=== PATIENT | male | born 1995 | race Asian ===

== ENCOUNTER 2017-12-02 11:58 | Emergency (ER) | payer OTHER ==
[~2017-12-02] VITALS: Ht 167.6 cm; Wt 61.2 kg
[2017-12-02 12:19] VITALS: BP 155/80; TEMP 99
== END 2017-12-02 15:35 | disposition home or self-care (01) ==
LOC: ED 11:58
DX: R53.1 Weakness (principal); K92.0 Hematemesis
CPT/HCPCS: 99281

== ENCOUNTER 2020-05-28 18:32 | Emergency (ER) | payer OTHER ==
[~2020-05-28] VITALS: Ht 167.6 cm; Wt 56.7 kg
[2020-05-28 19:10] VITALS: TEMP 98.2
[2020-05-28 21:11] VITALS: BP 126/78
== END 2020-05-28 21:12 | disposition home or self-care (01) ==
LOC: ED 18:32
DX: J20.9 Acute bronchitis, unspecified (principal); Z03.818 Encounter for observation for suspected exposure to other biological agents ruled out; F17.210 Nicotine dependence, cigarettes, uncomplicated
CPT/HCPCS: 87635; 99283; U0003

== ENCOUNTER 2021-03-27 10:13 | Emergency (ER) | payer OTHER ==
[~2021-03-27] VITALS: Ht 167.6 cm; Wt 56.7 kg
[2021-03-27 10:15] VITALS: TEMP 98.3
[2021-03-27 11:40] VITALS: BP 118/62
== END 2021-03-27 11:40 | disposition home or self-care (01) ==
LOC: ED 10:13
DX: J20.9 Acute bronchitis, unspecified (principal); F17.210 Nicotine dependence, cigarettes, uncomplicated
CPT/HCPCS: 99281

== ENCOUNTER 2021-04-04 07:00 | Emergency (ER) | payer OTHER ==
[~2021-04-04] VITALS: Ht 167.6 cm; Wt 59.0 kg
[2021-04-04 07:08] VITALS: BP 132/66; TEMP 99.3
== END 2021-04-04 07:35 | disposition home or self-care (01) ==
LOC: ED 07:00
DX: K62.0 Anal polyp (principal)
CPT/HCPCS: 99281

== ENCOUNTER 2021-04-09 06:18 | Emergency (ER) | payer OTHER ==
[~2021-04-09] VITALS: Ht 167.6 cm; Wt 54.0 kg
[2021-04-09 06:28] VITALS: TEMP 98.1
[2021-04-09 08:15] VITALS: BP 118/76
== END 2021-04-09 08:15 | disposition home or self-care (01) ==
LOC: ED 06:18
DX: J40 Bronchitis, not specified as acute or chronic (principal); F17.210 Nicotine dependence, cigarettes, uncomplicated; Z20.822 Contact with and (suspected) exposure to COVID-19
CPT/HCPCS: 87635; 99282; U0003

== ENCOUNTER 2021-07-28 06:24 | Emergency (ER) | payer OTHER ==
[~2021-07-28] VITALS: Ht 167.6 cm; Wt 59.0 kg
[2021-07-28 06:30] VITALS: BP 133/66; TEMP 99
== END 2021-07-28 07:39 | disposition home or self-care (01) ==
LOC: ED 06:24
DX: J06.9 Acute upper respiratory infection, unspecified (principal); Z20.822 Contact with and (suspected) exposure to COVID-19; F17.290 Nicotine dependence, other tobacco product, uncomplicated
CPT/HCPCS: 87635; 87651; 99283; U0003

== ENCOUNTER 2021-11-10 19:06 | Emergency (ER) | payer OTHER ==
[~2021-11-10] VITALS: Ht 167.6 cm; Wt 55.3 kg
[2021-11-10 20:05] VITALS: BP 122/74; TEMP 98.7
== END 2021-11-10 20:05 | disposition home or self-care (01) ==
LOC: ED 19:06
DX: J20.9 Acute bronchitis, unspecified (principal); F17.210 Nicotine dependence, cigarettes, uncomplicated
CPT/HCPCS: 96372; 99283; J0696; J1100

== ENCOUNTER 2021-11-16 21:36 | Emergency (ER) | payer OTHER ==
[~2021-11-16] VITALS: Ht 167.6 cm; Wt 55.3 kg
[2021-11-16 23:45] VITALS: BP 118/58; TEMP 98.2
== END 2021-11-16 23:45 | disposition home or self-care (01) ==
LOC: ED 21:36
DX: M54.59 Other low back pain (principal); G89.29 Other chronic pain; V89.2XXA Person injured in unspecified motor-vehicle accident, traffic, initial encounter; Y92.89 Other specified places as the place of occurrence of the external cause
CPT/HCPCS: 81000; 99283

== ENCOUNTER 2021-12-15 07:17 | Emergency (ER) | payer OTHER ==
[~2021-12-15] VITALS: Ht 167.6 cm; Wt 55.3 kg
[2021-12-15 07:26] VITALS: BP 132/70; TEMP 97.9
== END 2021-12-15 08:09 | disposition home or self-care (01) ==
LOC: ED 07:17
DX: K02.9 Dental caries, unspecified (principal)
CPT/HCPCS: 96372; 99283; J1885

== ENCOUNTER 2022-02-25 05:43 | Emergency (ER) | payer OTHER ==
[~2022-02-25] VITALS: Ht 167.6 cm; Wt 51.3 kg
[2022-02-25 06:44] VITALS: BP 124/70; TEMP 98.4
== END 2022-02-25 06:44 | disposition home or self-care (01) ==
LOC: ED 05:43
DX: B34.9 Viral infection, unspecified (principal); J06.9 Acute upper respiratory infection, unspecified; H61.23 Impacted cerumen, bilateral; F17.210 Nicotine dependence, cigarettes, uncomplicated
CPT/HCPCS: 96372; 99283; J0696; J1100

== ENCOUNTER 2022-07-11 21:53 | Emergency (ER) | payer OTHER ==
[~2022-07-11] VITALS: Ht 167.6 cm; Wt 57.2 kg
[2022-07-11 22:00] VITALS: BP 147/92; TEMP 98.1
== END 2022-07-11 23:15 | disposition home or self-care (01) ==
LOC: ED 21:53
DX: K04.7 Periapical abscess without sinus (principal); K02.9 Dental caries, unspecified; S02.5XXA Fracture of tooth (traumatic), initial encounter for closed fracture; X58.XXXA Exposure to other specified factors, initial encounter; Y92.89 Other specified places as the place of occurrence of the external cause
CPT/HCPCS: 96372; 99283; J0696; J1885; J2175; J2405

== ENCOUNTER 2023-02-06 19:59 | Emergency (ER) | payer OTHER ==
[~2023-02-06] VITALS: Ht 172.7 cm; Wt 59.0 kg
[2023-02-06 20:10] VITALS: TEMP 98.6
[2023-02-06 22:50] VITALS: BP 159/88
== END 2023-02-06 22:50 | disposition home or self-care (01) ==
LOC: ED 19:59
DX: K02.9 Dental caries, unspecified (principal); M26.629 Arthralgia of temporomandibular joint, unspecified side; M26.609 Unspecified temporomandibular joint disorder, unspecified side; J01.90 Acute sinusitis, unspecified; F17.290 Nicotine dependence, other tobacco product, uncomplicated
CPT/HCPCS: 96372; 99283; J1885

== ENCOUNTER 2023-02-16 16:47 | Emergency (ER) | payer OTHER ==
[~2023-02-16] VITALS: Ht 172.7 cm; Wt 54.4 kg
[2023-02-16 16:57] VITALS: BP 127/79; TEMP 100.2
[2023-02-16 17:54] LABS: PLATELET COUNT 158 K/uL (142-355)
[2023-02-16 18:16] LABS: POTASSIUM 3.8 mmol/L (3.6-5.2)
== END 2023-02-16 19:32 | disposition home or self-care (01) ==
LOC: ED 16:47
PROVIDERS: Emergency Medicine
DX: B34.9 Viral infection, unspecified (principal); J06.9 Acute upper respiratory infection, unspecified
CPT/HCPCS: 80053; 85027; 87502; 87651; 99283